=== PATIENT | female | born 1990 ===

== ENCOUNTER 2020-03-11 21:40 | Outpatient (REF) | payer MEDICAID, SELFPAY ==
[2020-03-15 21:06] LABS: COVID-19 RT-PCR Result Positive (Negative)
== END 2020-03-11 22:00 ==
LOC: NCHCN 21:40
PROVIDERS: PCP Internal Medicine; Visit Provider Internal Medicine
DX: Z20.828 Contact with and (suspected) exposure to other viral communicable diseases (principal)
CPT/HCPCS: U0003